=== PATIENT | female | born 1970 | race Caucasian/White ===

== ENCOUNTER 2018-02-19 20:20 | Emergency (ER) | payer OTHER ==
[~2018-02-19] VITALS: Ht 170.2 cm; Wt 110.0 kg
[~2018-02-19 20:20] MED LIST: ESOM40CA PO; HYDR4TAB45 PO; METO5TAB98 PO; PER10325T PO; PROM25SU46 RC; RANI150T44 PO; SITA1TBM4 PO; TELM40TA4 PO; TRIA1TAB94 PO; ZOF4T PO
[2018-02-19] MEDS ORDERED: ondansetron/PF 4mg/2ml inj IV ONE (20:35)
[2018-02-19] MEDS ORDERED: normal saline 1000ml 1,000 ML IV ONE (20:35)
[2018-02-19] MEDS ORDERED: LORazepam 2 mg/ml vial IV ONE (20:40)
[2018-02-19 20:50] LABS: BASOPHILS % (AUTO) 0.5 % (0-1); EOSINOPHILS # (AUTO) 0.1 X10'3 (0-0.9); EOSINOPHILS % (AUTO) 1.4 % (0-6); HEMOGLOBIN 14.4 g/dl (12.0-16.0); LYMPHOCYTES # (AUTO) 2.5 X10'3 (1.1-4.8); MEAN CORPUSCULAR HEMOGLOBIN 26.8 PG (27.0-31.0); MEAN CORPUSCULAR HGB CONC 32.9 % (33.0-36.5); MEAN CORPUSCULAR VOLUME 81.5 FL (78-98); MEAN PLATELET VOLUME 10.2 FL (7.4-10.4); MONOCYTES # (AUTO) 0.6 X10'3 (0-0.9); MONOCYTES % (AUTO) 8.1 % (2-12); NEUTROPHILS # (AUTO) 3.9 X10'3 (1.8-7.7); PLATELET COUNT 245 X10'3 (140-440); RED BLOOD COUNT 5.39 X10'6 (4.20-5.60); RED CELL DISTRIBUTION WIDTH 13.9 % (11.5-14.5); WHITE BLOOD COUNT 7.2 X10'3 (4.5-11.0)
[2018-02-19 20:55] LABS: CLARITY,URINE CLEAR (Clear); COLOR,URINE YELLOW (Yellow); GLUCOSE, URINE >=1000 mg/dl (Neg); KETONES,URINE NEGATIVE (Neg); LEUKOCYTE ESTERASE ,URINE NEGATIVE (Neg); NITRITES, URINE NEGATIVE (Neg); OCCULT BLOOD,URINE NEGATIVE (Neg); PROTEIN,URINE 30 mg/dl (Neg); UROBILINOGEN,URINE 0.2 E.U/dL (0.2-1.0)
[2018-02-19 20:56] LABS: PARTIAL THROMBOPLASTIN TIME 29 SECONDS (22-32); PROTHROMBIN TIME 9.8 SECONDS (9.0-12.0)
[2018-02-19 20:58] LABS: ALANINE AMINOTRANSFERASE 49 U/L (12-78); ALBUMIN 3.1 G/DL (3.4-5.0); ALBUMIN/GLOBULIN RATIO 0.7 (1.1-1.5); ALKALINE PHOSPHATASE 144 IU/L (46-116); ANION GAP 13 (8-16); ASPARTATE AMINO TRANSFERASE 29 U/L (10-37); BILIRUBIN,TOTAL 0.4 MG/DL (0.1-1.0); BLOOD UREA NITROGEN 11 MG/DL (7-18); BUN/CREATININE RATIO 11.3 (6.6-38.0); CALCIUM 9.2 MG/DL (8.5-10.1); CHLORIDE 97 MMOL/L (99-107); CREATININE 0.97 MG/DL (0.40-0.90); GLUCOSE 318 MG/DL (70-104); POTASSIUM 3.4 MMOL/L (3.5-5.1); SODIUM 136 MMOL/L (135-145); TOTAL CARBON DIOXIDE 26.1 MMOL/L (24-32); TOTAL PROTEIN 7.5 G/DL (6.4-8.2); eGFR 62 ML/MIN
[2018-02-19 21:00] LABS: CREATINE KINASE 87 U/L (26-192)
[2018-02-19 21:02] LABS: ACETAMINOPHEN < 2.0 UG/ML (10-30); ETHANOL < 0.010 GM/DL (0.0-0.010)
[2018-02-19 21:02] LABS: UA COLLECTION TYPE STRAIGHT CATH
[2018-02-19 21:04] LABS: BACTERIA,URINE FEW /HPF (Neg); RBC,URINE 0-2 /HPF (0-2); SQUAMOUS EPITHELIAL CELL,UR FEW /LPF (FEW); WBC,URINE 0-4 /HPF (0-4)
[2018-02-19 21:16] LABS: URINE AMPHETAMINE SCREEN NEGATIVE (Neg); URINE BARBITUATE SCREEN NEGATIVE (Neg); URINE BENZODIAZEPINES SCREEN NEGATIVE (Neg); URINE CANNABINOID SCREEN POSITIVE (Neg); URINE COCAINE SCREEN NEGATIVE (Neg); URINE METHADONE SCREEN NEGATIVE (Neg); URINE OPIATE SCREEN POSITIVE (Neg); URINE PHENCYCLIDINE SCREEN NEGATIVE (Neg)
[2018-02-19] MEDS ORDERED: haloperidol lactate 5mg/ml inj IM ONE (21:45)
[2018-02-19 23:16] VITALS: BP 109/85
== END 2018-02-20 01:12 | disposition home or self-care (01) ==
LOC: EDBD → ER 20:21 → MERGE 20:21 → ER 02-20 01:12
DX: T40.7X1A Poisoning by cannabis (derivatives), accidental (unintentional), initial encounter (principal); G93.40 Encephalopathy, unspecified; R73.9 Hyperglycemia, unspecified; F19.10 Other psychoactive substance abuse, uncomplicated; F12.90 Cannabis use, unspecified, uncomplicated; Y92.89 Other specified places as the place of occurrence of the external cause
CPT/HCPCS: 36415; 70450; 80053; 80305; 80320; 80329; 81001; 82550; 85025; 85610; 85730; 93005; 96361; 96372; 96374; 96375; 99285; J1630; J2060; J2405

== ENCOUNTER 2018-03-01 09:26 | Day surgery (SDC) | payer MEDICARE, OTHER ==
[2018-02-24 15:20] LABS: HEMOGLOBIN A1C 10.1 % (4.5-6.2)
[2018-02-24 15:24] LABS: CLARITY,URINE CLEAR (Clear); COLOR,URINE YELLOW (Yellow); GLUCOSE, URINE >=1000 mg/dl (Neg); KETONES,URINE NEGATIVE (Neg); LEUKOCYTE ESTERASE ,URINE NEGATIVE (Neg); NITRITES, URINE NEGATIVE (Neg); OCCULT BLOOD,URINE NEGATIVE (Neg); PROTEIN,URINE TRACE mg/dl (Neg); UROBILINOGEN,URINE 0.2 E.U/dL (0.2-1.0)
[2018-02-24 15:25] LABS: ALBUMIN 2.9 G/DL (3.4-5.0); ALBUMIN/GLOBULIN RATIO 0.7 (1.1-1.5); ALKALINE PHOSPHATASE 143 IU/L (46-116); BLOOD UREA NITROGEN 9 MG/DL (7-18); BUN/CREATININE RATIO 14.3 (6.6-38.0); CALCIUM 8.9 MG/DL (8.5-10.1); CHLORIDE 99 MMOL/L (99-107); CREATININE 0.63 MG/DL (0.40-0.90); PRE OP ALT 60 U/L (30-65); PRE OP ANION GAP 6 (8-16); PRE OP AST 32 U/L (10-37); PRE OP BILIRUB, TOTAL 0.4 MG/DL (0.0-1.0); PRE OP SODIUM 134 MMOL/L (135-145); TOTAL CARBON DIOXIDE 28.7 MMOL/L (24-32); eGFR > 90 ML/MIN
[2018-02-24 15:27] LABS: EOSINOPHILS # (AUTO) 0.1 X10'3 (0-0.9); EOSINOPHILS % (AUTO) 1.6 % (0-6); LYMPHOCYTES # (AUTO) 1.4 X10'3 (1.1-4.8); LYMPHOCYTES % (AUTO) 31.8 % (21-51); MEAN CORPUSCULAR HEMOGLOBIN 26.9 PG (27.0-31.0); MEAN CORPUSCULAR HGB CONC 32.7 % (33.0-36.5); MEAN CORPUSCULAR VOLUME 82.5 FL (78-98); MEAN PLATELET VOLUME 10.3 FL (7.4-10.4); MONOCYTES # (AUTO) 0.3 X10'3 (0-0.9); MONOCYTES % (AUTO) 7.6 % (2-12); NEUTROPHILS # (AUTO) 2.5 X10'3 (1.8-7.7); PRE OP HEMATOCRIT 42.1 % (35.0-45.0); PRE OP HEMOGLOBIN 13.8 g/dL (12.0-16.0); PRE OP PLATELET COUNT 235 X10'3 (140-440); RED BLOOD COUNT 5.11 X10'6 (4.20-5.60); RED CELL DISTRIBUTION WIDTH 14.4 % (11.5-14.5)
[2018-02-24 15:36] LABS: PRE OP GLUCOSE 355 MG/DL (70-104)
[2018-02-24 15:40] LABS: SQUAMOUS EPITHELIAL CELL,UR FEW /LPF (FEW); UA COLLECTION TYPE CLN CATCH MIDSTREAM
[2018-02-24 15:41] LABS: BACTERIA,URINE FEW /HPF (Neg); RBC,URINE 0-2 /HPF (0-2); WBC,URINE 0-4 /HPF (0-4)
[~2018-03-01] VITALS: Ht 165.1 cm; Wt 108.5 kg
[~2018-03-01 09:26] MED LIST changes: +CANA100T PO; -ESOM40CA PO; +GLIM4TAB79 PO; -HYDR4TAB45 PO; +LOSA50TA21 PO; -METO5TAB98 PO; +MORP15TA PO; +NORT75CA PO; -PER10325T PO; -PROM25SU46 RC; +PYRI60TA PO; -RANI150T44 PO; +RIZA10TA27 SL; -SITA1TBM4 PO; -TELM40TA4 PO; +VENL75CA61 PO; -ZOF4T PO; +cefazolin/dext.iso 2gm/100 ML IV ONE; +famotidine 20mg tablet PO ONE; +ringers solution, lacted 1,000 ML IV SCH
[2018-03-01 09:30] VITALS: BP 131/86
[2018-03-01] MEDS ORDERED: insulin regular, human 10 units/0.1 ml syringe IV ONE (10:05)
[2018-03-01] MEDS ORDERED: LIDOcaine 1% 30ml preserv. free vial ONE (11:15)
[2018-03-01] MEDS ORDERED: BUPIVAcaine/PF 2.5mg/ml (0.25%) 10ml vial ONE (11:15)
[2018-03-01] MEDS ORDERED: ringers solution, lacted 1,000 ML IV SCH (11:38)
[2018-03-01] MEDS ORDERED: labetalol 20mg/4ml (5mg/ml) syringe IV PRN (11:40)
[2018-03-01] MEDS ORDERED: ondansetron/PF 4mg/2ml inj IV PRN (11:40)
[2018-03-01] MEDS ORDERED: hydrALAZINE 20mg/ml inj. IV PRN (11:40)
[2018-03-01] MEDS ORDERED: fentaNYL/PF 50MCG/1 ML 2ML syringe IV PRN ×2 (11:40)
[2018-03-01] MEDS ORDERED: morphine 4 MG/ML inj SYRINge IV PRN ×2 (11:40)
[2018-03-01] MEDS ORDERED: MIDAZolam 1mg/ml 10ml vial ONE (11:48)
[2018-03-01] MEDS ORDERED: fentaNYL/PF 50MCG/1 ML 2ML syringe ONE (11:48)
[2018-03-01] MEDS ORDERED: propofol inj 20 ML IV ONE (11:51)
[2018-03-01] MEDS ORDERED: LIDOcaine 2% (20mg/ml) 5ml vial ONE (11:51)
[2018-03-01 12:14] VITALS: BP 127/64
[2018-03-01 12:24] VITALS: BP 112/68
[2018-03-01 12:34] VITALS: BP 118/74
[2018-03-01 12:44] VITALS: BP 120/80
[2018-03-01 12:54] VITALS: BP 122/82
== END 2018-03-01 13:04 | disposition home or self-care (01) ==
LOC: PAS 09:26
PROVIDERS: ATTEND Surgery
DX: L72.3 Sebaceous cyst (principal); L02.211 Cutaneous abscess of abdominal wall; I10 Essential (primary) hypertension; E11.9 Type 2 diabetes mellitus without complications; M19.90 Unspecified osteoarthritis, unspecified site; M79.7 Fibromyalgia; Z79.899 Other long term (current) drug therapy; Z98.890 Other specified postprocedural states
CPT/HCPCS: 11404; 36415; 80053; 81001; 82948; 83036; 85025; 93005; A6449; J0690; J1815; J2001; J2250; J2270; J2704; J3010; J3490; 88304; A7000; J7120

== ENCOUNTER 2022-10-20 14:00 | Emergency (ER) | payer MEDICARE, OTHER ==
[~2022-10-20] VITALS: Ht 167.6 cm; Wt 104.0 kg
[~2022-10-20 14:00] MED LIST changes: +GLIM4TAB7 PO; -GLIM4TAB79 PO; -LOSA50TA21 PO; +LOSA50TA64 PO; +RIZA-5 SL; -RIZA10TA27 SL; -cefazolin/dext.iso 2gm/100 ML IV ONE; -famotidine 20mg tablet PO ONE; -ringers solution, lacted 1,000 ML IV SCH
[2022-10-20 14:03] VITALS: BP 173/83
== END 2022-10-20 15:38 | disposition home or self-care (01) ==
LOC: ER 14:01
DX: K08.89 Other specified disorders of teeth and supporting structures (principal); G89.18 Other acute postprocedural pain; I10 Essential (primary) hypertension; K21.9 Gastro-esophageal reflux disease without esophagitis; E11.9 Type 2 diabetes mellitus without complications; Z90.49 Acquired absence of other specified parts of digestive tract; Z56.0 Unemployment, unspecified
CPT/HCPCS: 99281